=== PATIENT | female | born 1975 | race Caucasian/White ===

== ENCOUNTER → 2016-08-07 | Outpatient (CLI) | payer MEDICAID ==
[~2016-08-07] MED LIST: CELE20TA PO; FERR325T PO; MORP1TAB24 PO; NICO21DI2 T-DERMAL; PERC10TA27 PO; SENN1TAB PO; XANA1TAB2 PO; ZOFR8TAB PO; ZOLO25TA PO
[2016-08-07 11:55] LABS: AUTOMATED NEUTROPHIL # 9.2 TH/MM3 (1.8-7.7); BASOPHIL # 0.1 TH/MM3 (0-0.2); BASOPHIL % 0.5 % (0.0-2.0); EOSINOPHIL # 0.1 TH/MM3 (0-0.4); EOSINOPHIL % 0.6 % (0.0-4.0); HEMATOCRIT 36.2 % (35.0-46.0); LYMPHOCYTE # 2.8 TH/MM3 (1.0-4.8); MEAN CELL VOLUME 80.4 FL (80.0-100.0); MEAN CORPUSCULAR HEMOGLOBIN 24.8 PG (27.0-34.0); MEAN CORPUSCULAR HGB CONC 30.8 % (32.0-36.0); NEUT % 71.9 % (16.0-70.0); PLATELET COUNT 248 TH/MM3 (150-450); RED CELL DISTRIBUTION WIDTH 17.3 % (11.6-17.2); WHITE BLOOD COUNT 12.8 TH/MM3 (4.0-11.0)
[2016-08-07 11:58] LABS: HEMO FLAGS AUTO DIFF
[2016-08-07 12:13] LABS: APTT (PATIENT) 26.7 SEC (24.3-30.1)
[2016-08-07 12:30] LABS: PLATELET ESTIMATE SMEAR NORMAL (NORMAL); PLATELET MORPHOLOGY ENLARGED (NORMAL); SCAN/DIFF AUTO DIFF CONFIRMED
[2016-08-07 12:45] LABS: ALKALINE PHOSPHATASE 61 U/L (45-117); ALT (GPT) 14 U/L (10-53); ANION GAP 5 MEQ/L (5-15); AST (GOT) 17 U/L (15-37); BICARBONATE 29.7 MEQ/L (21.0-32.0); BLOOD UREA NITROGEN 7 MG/DL (7-18); CHLORIDE 106 MEQ/L (98-107); GLOMERULAR FILTRATION RATE 72 ML/MIN (>89); GLUCOSE,FASTING 88 MG/DL (74-99); POTASSIUM 4.6 MEQ/L (3.5-5.1); SODIUM (NA) 141 MEQ/L (136-145); TOTAL BILIRUBIN ADULT 0.2 MG/DL (0.2-1.0)
== END ==
LOC: CLAB 11:25
PROVIDERS: ATTEND Obstetrics & Gynecology Gynecologic Oncology
DX: Z01.818 Encounter for other preprocedural examination (principal)
CPT/HCPCS: 36415; 80053; 84703; 85025; 85610; 85730

== ENCOUNTER → 2016-08-07 | Outpatient (CLI) | payer MEDICAID ==
--- NOTE | 2016-08-07 11:56 | EKG ---
Date Performed: 08/07/2016 Time Performed: 10:50:54 PTAGE: 41 years EKG: Sinus rhythm NORMAL ECG NO PREVIOUS TRACING DOCTOR: David Rodriguez Interpretating Date/Time 08/07/2016 11:50:46
== END ==
LOC: HCAV 10:18
PROVIDERS: ATTEND Obstetrics & Gynecology Gynecologic Oncology
DX: Z01.810 Encounter for preprocedural cardiovascular examination (principal)
CPT/HCPCS: 93005

== ENCOUNTER 2016-08-14 05:19 | Inpatient (IN) | payer MEDICAID ==
[~2016-08-14] VITALS: Ht 160 cm; Wt 51.0 kg
[2016-08-14] MEDS ORDERED: CHLORHEXIDINE GLUCONATE 2 % 1 PACK (2 CLOTHS) TOPICAL PRN (05:45)
[2016-08-14] MEDS ORDERED: LACTATED RINGER'S 1000 ML IV PRN (05:45)
[2016-08-14] MEDS ORDERED: METOPROLOL TARTRATE 25 MG TAB PO PRN (05:45)
[2016-08-14] MEDS ORDERED: INSULIN HUMAN REGULAR 1,000 UNITS/10 ML VIAL SQ PRN (05:45)
[2016-08-14] MEDS ORDERED: POVIDONE IODINE 5% (ANTISEPSIS KIT) 4 APPLICATIONS EACH NARE PRN (05:45)
[2016-08-14] MEDS ORDERED: SODIUM CHLORID 0.9% 500 ML IV PRN (05:45)
[2016-08-14 05:55] VITALS: BP 105/58; PULSE 73; RESP 20; TEMP 98.8; O2SAT 99
[2016-08-14] MEDS ORDERED: LIDOCAINE 1%/EPINEPHrine 1:100,000 SOLN 50 ML VIAL ONE (06:10)
[2016-08-14] MEDS ORDERED: SILVER NITR/POTASSIUM NITRATE APPLICATORS ONE (06:11)
[2016-08-14] MEDS ORDERED: MIDAZOLAM HCL 2 MG/2 ML VIAL ONE (06:55)
[2016-08-14] MEDS ORDERED: FAMOTIDINE 20 MG/2 ML VIAL ONE (06:56)
[2016-08-14] MEDS ORDERED: ACETAMINOPHEN 1000 MG/100 ML VIAL IV ONE (07:13)
[2016-08-14] MEDS ORDERED: FERRIC SUBSULFATE 8 ML TOP SOLN ONE ×2 (07:31→07:41)
[2016-08-14] MEDS ORDERED: ESTROGENS CONJUGATED VAG CREA 15 APPL/30 GM TUBE ONE ×2 (07:59→08:10)
[2016-08-14] MEDS ORDERED: DO NOT ADM ANY ANTICOAGULANT DRUGS PRN (08:28)
[2016-08-14] MEDS ORDERED: SODIUM CHLORIDE 0.9% FLUSH 10 ML FLUSH IV FLUSH PRN (08:30)
[2016-08-14] MEDS ORDERED: oxyCODONE/ACETAMINOPHEN 5 MG/325 MG TAB PO PRN (08:30)
[2016-08-14] MEDS ORDERED: diphenhydrAMINE HCL 25 MG CAP PO PRN (08:30)
[2016-08-14] MEDS: D5-1/2 NS + KCL 20 MEQ INJ 1,000 ML IV SCH (08:46)
[2016-08-14] MEDS: SODIUM CHLORIDE 0.9% FLUSH 10 ML FLUSH IV FLUSH SCH ×2 (09:00→21:00)
--- NOTE | 2016-08-14 09:39 | MH ---
cc: ARIANNE GORDON M.D.,MAURILIO GALVAN,ESTEFANIA Urias MD DATE OF ADMISSION: 08/14/2016 REASON FOR ADMISSION Cervical cancer, bleeding. HISTORY The history is well outlined in a recent initial consultation note. Her history has not changed and this can be used for reference. REASON FOR ADMISSION She underwent examination under anesthesia this morning with cervical biopsies. She had very heavy active bleeding requiring vaginal packing, hemostatic agents and additional packing and I was apprehensive about allowing her to be discharged to home for concerns about additional bleeding as an outpatient. I have contacted the hospitalist service to ask for their help in admitting her and overseeing her medical management given her past medical history which is also somewhat complex despite her young age of 41. At the time of the procedure she has a Surgicel pack on the cervix and then a Kerlix roll lubricated pack in the vagina for hemostasis and Black catheter has been placed. She is hemodynamically stable in the operating room and recovery room and the bleeding had been completely stopped at the completion of the operative case. She will be admitted to the hospital, typed and crossed for 2 units. I have consulted Radiation Oncology (Dr. 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 These findings, recommendations and rationale been discussed with her and will be discussed with her when she is awake and cognizant from anesthesia and able to understand this discussion, although the possibility of these steps as well as radiation treatment had been discussed preoperatively and she is aware that that may be recommended based on findings today. ASSESSMENT 1. 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 2. Bleeding requiring packing as summarized above. PLAN 1. Admit to the hospital. We will ask the [facility] team if they would be willing to admit her and oversee medical management during her hospitalization. 2. Consult Interventional Radiology. Venous access port placement. 3. Chemotherapy teaching session for weekly cisplatin (to be done by our office oncology nurse). 4. Consult Dr. Jaswinder Gordon of Radiation Oncology for evaluation and management and to initiate pelvic radiation as soon as logistically possible to help control bleeding. 5. Supportive care, ongoing management. MD GABRIEL Ulrich /9:11 AM /9:34 AM
[2016-08-14] MEDS: LORazepam 0.5 MG TAB PO PRN ×2 (10:55→22:09)
[2016-08-14] MEDS ORDERED: PILL SPLITTER OTHER PRN (11:00)
[2016-08-14 11:54] VITALS: BP 103/55; PULSE 63; RESP 18; TEMP 97.6; O2SAT 97
[2016-08-14] MEDS ORDERED: PROPOFOL 200 MG/20 ML AMP IV ONE (12:00)
[2016-08-14] MEDS ORDERED: ONDANSETRON HCL 4 MG/2 ML VIAL IV PUSH ONE (12:00)
[2016-08-14] MEDS ORDERED: LACTATED RINGER'S 1000 ML INJ 1,000 ML IV ONE (12:00)
[2016-08-14] MEDS: oxyCODONE/ACETAMINOPHEN 5 MG/325 MG TAB PO PRN ×2 (12:42→22:11)
[2016-08-14] MEDS ORDERED: KETOROLAC TROMETHAMINE 30 MG/ML (IVP) VIAL IV PUSH PRN (13:00)
[2016-08-14] MEDS: NICOTINE 21 MG/24 HR PATCH T-DERMAL SCH (13:00)
[2016-08-14] MEDS ORDERED: VANCOMYCIN HCL 1000 MG ON-CALL/NS 250 ML IV SCH ×2 (16:00)
[2016-08-14] MEDS ORDERED: ceFAZolin 2 GM PREMIX 50 ML IV SCH (16:00)
[2016-08-14 16:29] VITALS: BP 103/52; PULSE 67; RESP 18; TEMP 98.4; O2SAT 99
--- NOTE | 2016-08-14 19:27 | MB ---
cc: ARIANNE GORDON M.D., STANLEY D.O. MOLPUS,ESTEFANIA Urias MD DATE OF CONSULTATION 08/14/[address] OF [address] [facility] NUMBER [id number] REASON FOR CONSULTATION This is a 41-year-old female admitted to the hospital today after having an examination under anesthesia for suspected cervical cancer. BRIEF HISTORY This is a 41-year-old female who has not had a gynecologic exam for at least 17 years. She has had several months of heavy menstrual bleeding including blood clots, postcoital bleeding and pelvic and low back pain. A Pap smear was performed suggesting at least carcinoma in situ and she was referred to Dr. Davis. Today in the operating room the patient was examined under anesthesia with biopsies, cystoscopy and sigmoidoscopy. I was present for the EUA. This lady has a large roughly 7 cm barrel-shaped cervix. Her left parametria are clear. There was fullness along the right parametria and this side is foreshortened. There is no evidence of disease involving the vagina. She went on to have a biopsy performed and unfortunately this triggered heavy bleeding. Dr. Davis subsequently performed vaginal packing and has referred her for initiation of radiation treatment to help control bleeding. PAST MEDICAL AND SURGICAL HISTORY Includes: 1. Amputation of a lower extremity. 2. Appendectomy. 3. Cholecystectomy. 4. With tubal ligation. 5. She has a history of presumed cervical cancer and biopsies performed. Pathology is pending. 6. Chronic obstructive pulmonary disease. 7. Elevated cholesterol. 8. History of migraine headaches. SOCIAL AND FAMILY HISTORY She is . She has had two pregnancies and two vaginal births. She does smoke on a daily basis and admits to occasional alcohol. There is no clear family history of malignancy. ALLERGIES NONE KNOWN. MEDICATIONS None prior to hospitalization. REVIEW OF SYSTEMS CONSTITUTIONAL: She complains of fatigue without weight loss. EARS, NOSE, AND THROAT: She has some photosensitivity. She admits to some difficulty hearing. BREASTS: No lumps or nodules. RESPIRATORY: Denies shortness of breath, cough or sputum. CARDIOVASCULAR: Does get some shortness of breath and occasional ankle swelling. GASTROINTESTINAL: Abdominal pain with nausea and some cramping. She denies diarrhea or melena. GENITOURINARY: She has had vaginal bleeding, discharge and blood clots. MUSCULOSKELETAL: Complains of arthritis and bone pain, stiffening of her joints. SKIN: Dry skin. NEUROLOGIC: Denies strokes, seizures or paresthesias. She does admit to headaches and insomnia. PSYCHIATRIC: She admits to some symptoms of depression. ENDOCRINE: She has hot flashes and what she feels is menstrual irregularity. PHYSICAL EXAMINATION VITAL SIGNS: Today on exam she is afebrile. Pulse is 63 and regular, respiratory rate of 18, blood pressure 103/55 and O2 sat on room air of 97%. HEENT: There was no evidence of jaundice. Her conjunctive and eyelids are normal. She had full EOMs. Oral cavity was normal. There is no adenopathy in her head or neck. LUNGS: Her lung encinas were clear without effusion. CARDIOVASCULAR: Her heart sounds were normal without murmurs, rubs or bruits. ABDOMEN: No abdominal masses or tenderness. PELVIC: Vaginal exam revealed a large barrel-shaped 6-7 cm cervix which was mobile with apparent extension into the parametria, although there was no discrete nodules, just thickening. Left parametria was clear. NEUROLOGIC: Power and tone were normal. IMAGING Review of data, this lady has had a CT scan performed on an outpatient basis. This revealed intense uptake in the region of her cervix. There were no other abnormalities. I have reviewed this personally. There is no evidence of lymphadenopathy and no evidence of metastases. ASSESSMENT AND PLAN I have reviewed with her and her the findings. They are aware that although we do not have final pathology, we believe she has a cervix cancer and unfortunately she has been bleeding very heavily. Based on this would like to start radiation treatment on an emergent basis even prior to pathology. I have discussed radiation treatment. I have discussed how it is delivered as well as the side effects including genitourinary and GI tract symptoms which can be severe but expected to resolve when treatment is completed. We have discussed both external beam treatment as well as brachytherapy in the form of tandem and ovoids. Both this lady and her did indicate an understanding of what was discussed. I answered their questions for them and they would like us to proceed as outlined. Based on above we have performed a simulation today and I would anticipate her treatment to start tomorrow. MD KADEN Winn/DIMA /4:20 PM /7:03 PM
[2016-08-14 22:01] VITALS: BP 104/59; PULSE 72; RESP 16; TEMP 99.1; O2SAT 98
[2016-08-15] VITALS (11 sets, daily range): BP systolic 89–124; BP diastolic 40–69; PULSE 61–87; RESP 16–20; TEMP 96.7–98; O2SAT 94–100
[2016-08-15 07:36] LABS: BICARBONATE 23.3 MEQ/L (21.0-32.0); POTASSIUM 4.8 MEQ/L (3.5-5.1)
[2016-08-15 07:46] LABS: AUTOMATED NEUTROPHIL # 3.7 TH/MM3 (1.8-7.7); BASOPHIL # 0.1 TH/MM3 (0-0.2); BASOPHIL % 0.9 % (0.0-2.0); EOSINOPHIL # 0.1 TH/MM3 (0-0.4); EOSINOPHIL % 1.6 % (0.0-4.0); HEMATOCRIT 33.5 % (35.0-46.0); HEMO FLAGS DIFF FINAL; LYMPH % 44.4 % (9.0-44.0); LYMPHOCYTE # 3.9 TH/MM3 (1.0-4.8); MEAN CELL VOLUME 78.7 FL (80.0-100.0); MEAN CORPUSCULAR HEMOGLOBIN 25.4 PG (27.0-34.0); MEAN CORPUSCULAR HGB CONC 32.3 % (32.0-36.0); MONO % 10.7 % (0.0-8.0); NEUT % 42.4 % (16.0-70.0); PLATELET COUNT 190 TH/MM3 (150-450); RED BLOOD COUNT 4.25 MIL/MM3 (4.00-5.30); RED CELL DISTRIBUTION WIDTH 17.6 % (11.6-17.2); WHITE BLOOD COUNT 8.7 TH/MM3 (4.0-11.0)
--- NOTE | 2016-08-15 08:03 | PD.ONC.PN ---
Subjective Subjective Remarks POD #1 pt is resting in bed awakens to voice states she is having some pain and noticed some vaginal bleeding overnight she is going to have infusa-port placed today will have chemo teaching today and having first radiation treatment today. Objective Data Date Time Temp Pulse Resp B/P Pulse Ox O2 Delivery O2 Flow Rate FiO2 08/15/16 05:49 106/69 08/15/16 04:05 97.1 76 16 89/51 99 08/15/16 01:37 98.0 67 16 115/52 100 08/14/16 22:01 99.1 72 16 104/59 98 08/14/16 16:29 98.4 67 18 103/52 99 08/14/16 11:54 97.6 63 18 103/55 97 08/14/16 11:00 68 18 114/45 95 Room Air 08/14/16 10:00 60 18 87/46 93 Room Air 08/14/16 09:30 63 18 109/64 97 Room Air 08/14/16 09:15 71 18 116/64 96 Room Air 08/14/16 09:00 69 18 125/72 96 Room Air 08/14/16 08:45 66 18 135/70 98 Room Air 08/14/16 08:30 73 18 130/78 99 Room Air 08/14/16 08:25 97.6 78 18 129/69 99 Nasal Cannula 2 08/15/16 08/15/16 08/15/16 07:00 15:00 23:00 Intake Total 137 ml Output Total 700 ml Balance -563 ml Result Diagram: 08/15/16 0611 Laboratory Results Laboratory Tests Test 08/14/16 08/15/16 15:03 06:11 Blood Type A POSITIVE Sodium Level 141 MEQ/L Potassium Level 4.8 MEQ/L Chloride Level 109 MEQ/L Carbon Dioxide Level 23.3 MEQ/L Anion Gap 9 MEQ/L Blood Urea Nitrogen 12 MG/DL Creatinine 0.80 MG/DL Estimat Glomerular Filtration 80 ML/MIN Rate Random Glucose 99 MG/DL Calcium Level 7.9 MG/DL Administered Medications Medications (Trade) Dose Ordered Sig/Nick Route PRN Reason Start Time Stop Time Status Last Admin Dose Admin Potassium Chloride/Dextrose/ Sod Cl (D5-1/2 NS + KCl 20 Meq Inj) 1,000 ml @ 75 mls/hr [id number] IV 08/14/16 09:00 08/14/16 08:46 Oxycodone/ Acetaminophen (Percocet 5-325 Mg) 2 tab Q4H PRN PO PAIN SCALE 6 TO 10 08/14/16 08:30 08/14/16 22:11 Lorazepam (Ativan) 0.25 mg Q8H PRN PO ANXIETY 08/14/16 08:30 08/14/16 22:09 Objective Remarks GENERAL: Thin, well-developed patient. SKIN: Warm and dry. HEAD: Normocephalic. EYES: No scleral icterus. No injection or drainage. CARDIOVASCULAR: Regular rate and rhythm without murmurs. RESPIRATORY: Breath sounds equal bilaterally. No accessory muscle use. GASTROINTESTINAL: Abdomen soft, non-tender, nondistended. HEAD OPERATOR SULFIDE: small amount of SS drainage on ant pad EXTREMITIES: No cyanosis, or edema. MUSCULOSKELETAL: Adequate muscle tone. NEUROLOGICAL: No obvious focal deficit. PSYCHIATRIC: Appropriate mood and affect; insight and judgment normal. Assessment/Plan Problem List: (1) Cervical cancer Status: Acute Plan: vaginal packing monitor for any vaginal bleeding infusa-port to be placed today first radiation treatment today pt NPO for port placement continue to monitor for vaginal bleeding daily labs pending pain meds per EMR Attending Statement Dr. Davis is in agreement with this plan of care. Jihan Lubin Aug 15, 2016 08:03
[2016-08-15] MEDS: LORazepam 0.5 MG TAB PO PRN ×3 (08:17→23:38)
[2016-08-15] MEDS: oxyCODONE/ACETAMINOPHEN 5 MG/325 MG TAB PO PRN ×5 (08:19→23:37)
[2016-08-15] MEDS: SODIUM CHLORIDE 0.9% FLUSH 10 ML FLUSH IV FLUSH SCH ×2 (08:19→20:11)
[2016-08-15] MEDS: REMOVE OLD PATCH T-DERMAL SCH (08:20)
[2016-08-15] MEDS: NICOTINE 21 MG/24 HR PATCH T-DERMAL SCH (08:20)
--- NOTE | 2016-08-15 11:13 | MP ---
cc: MAURILIO THOMAS KELLY L. MD DATE OF SURGERY: 08/14/[address] Jaswinder Story, Radiation Oncology. PREOPERATIVE DIAGNOSIS Irregular bleeding, pelvic pain, abnormal Pap smear showing at least squamous cell carcinoma in situ. POSTOPERATIVE DIAGNOSIS Clinical stage IIB invasive squamous cell carcinoma of the cervix. PROCEDURE Examination under anesthesia, cervix biopsies, cystoscopy, proctoscopy, vaginal packing due to bleeding. SURGEON Esther Davis MD DIAL PAINTER [place] certified medical technician assistant. ANESTHESIA Laryngeal mask anesthesia. ESTIMATED BLOOD LOSS 500 ccs. HISTORY A 41-year-old female who has reported for some time irregular bleeding, bleeding between intercourse, back pain, pelvic pain. It has been approximately 17 years since her previous exam until recently. She had a Pap smear done elsewhere that showed at least high-grade dysplasia, invasive cancer could not be excluded. She was counseled and given her symptomatology and findings there was concern about invasive cancer. We recommended exam under anesthesia. She presents now for that endeavor. It is noted that she completed a PET scan yesterday, the results of which are pending at the time of this dictation. She had a PET scan yesterday, the interpretation of which is still pending. FINDINGS On exam under anesthesia there is no appreciably enlarged inguinal lymph nodes, external genitalia without mass or lesion. Digital exam reveals a very large exophytic tumor completely replacing the cervix and rectovaginal exam shows that there is still mobility on the left side, there is no overt palpable infiltration into the left parametria, but on the right parametria there is infiltration and nodularity. There is still a tumor free space between the parametria and the right pelvic sidewall. The tumor itself is at least 6 cm in diameter and was extremely hemorrhagic with tissue biopsies requiring vaginal packing, hemostatic agents and additional time and effort to render her hemostatic more so than usual biopsies of even cervix cancer. On cystoscopy the bladder mucosa appeared normal, circumferentially, the ureteral ostia were well-visualized bilaterally. There was good efflux of urine. There was no nodularity. No tumor invasion into the bladder. On rigid proctosigmoidoscopy to a depth of 17 cm, there was no mucosal abnormality, no infiltration, no obvious tumor in the anus or rectum. There was some extrinsic deviation from the large cervical mass, pushing on the rectum posteriorly. Frozen section biopsy shows an invasive squamous cell carcinoma. Overall these findings are consistent with a clinical stage IIB squamous cell carcinoma of the cervix and her disposition was such that vaginal packing was required and she was not able to be discharged to home, so she was admitted to the hospital for further evaluation and management. PROCEDURE The patient was taken to the operating room and placed in dorsal lithotomy position, after laryngeal mask anesthesia was administered, time-out was undertaken. The patient was identified by sight recognition and hospital ID bracelet and the proposed procedure was reviewed and confirmed. Exam under anesthesia was performed with findings as described above. She was prepped and draped in sterile fashion. Dr. Jack Story, Radiation Oncology had been consulted. He performed exam under anesthesia as well and concurred with our findings. After she was prepped and draped in sterile fashion, biopsies were taken of the cervix which immediately resulted in significant bleeding. Vaginal packing was undertaken and cystoscopy was performed using a 30 degree scope. Findings with cystoscopy are as described above, followed by rigid proctosigmoidoscopy with findings as described above. Change of sterile gloves was undertaken. The vaginal packs were removed. There was still active bleeding from the cervix biopsy tumor sites. Topical Monsel's hemostatic agent was applied which eventually slowed the bleeding considerably and a large piece of Surgicel was used overlying the cervical tumor and to pack the upper vagina which rendered the area hemostatic. However, due to the high volume active bleeding, it was felt that she could not be discharged to home safely. Decision was made to admit her to the hospital and a pressure packing in the vagina was placed using Kerlix rolls, two of which were tied together end to end, lubricated with estrogen cream, packed securely against the upper vagina, cervix and a Black catheter was placed in the bladder. She was turned to dorsal supine position. The counts were otherwise correct and she was pending reversal of anesthesia when I left the operating room to speak to her , who was waiting in the family waiting area. MD CAROL ANN Ulrich/JESÚS /9:01 AM /10:46 AM
[2016-08-15] MEDS ORDERED: MIDAZOLAM HCL 5 MG/5 ML VIAL ONE (12:17)
[2016-08-15] MEDS ORDERED: LIDOCAINE 1%/EPINEPHrine 1:100,000 SOLN 20 ML VIAL ONE (12:17)
[2016-08-15] MEDS ORDERED: fentaNYL CITRATE 250 MCG/5 ML AMP ONE (12:17)
[2016-08-15] MEDS ORDERED: LORazepam 2 MG/ML VIAL ONE (12:54)
--- NOTE | 2016-08-15 13:23 | PD.RAD ---
Post Procedure Progress Note Pre Procedure Diagnosis: (1) Cervical cancer Post Procedure Diagnosis: (1) Cervical cancer Procedure Date: Aug 15, 2016 Supervising Radiologist: Jose Miranda Proceduralist/Assist: Mercedes Meza RT(R), Mercedes Vargas RT(R)() Anesthesia: Local, Conscious Sedation Plan of Activity Patient to Unit: Nursing Unit Patient Condition: Good See PACS Report for procedural detail/treatment Central Venous Access Device Procedure 1 Right Internal Jugular Infusaport Placement single lumen [place]: 8 Jose Miranda MD Aug 15, 2016 13:23
--- NOTE | 2016-08-15 13:44 | RADRPT ---
EXAM DATE/TIME: 08/15/2016 12:30 [place] COMPARISON: No previous studies available for comparison. INDICATIONS : Patient with a history of cervical cancer. MEDICAL HISTORY : Elevated cholesterol Migraine headaches COPD History of presumed cervical cancer and biopsies performed, pathology is pending SURGICAL HISTORY : Amputation of toes, bilateral Appendectomy Cholecystectomy ENCOUNTER: Initial ACUITY: 1 day PAIN SCORE: 7/10 LOCATION: Lower back and hips FLUORO TIME: 0.5 minutes IMAGE SERIES: 1 SEDATION TIME: 45 minutes ACCESS: Right internal jugular vein SEDATION: 1.) 4 mg midazolam (Versed) IV 2.) 250 mcg fentanyl (Sublimaze) IV 3.) 1mg lorazepam (Ativan) IV Prophylactic antibiotics were administered with appropriate pre-procedure timing. Vancomycin within 2 hours of procedure, Ancef (or alternative) within 1 hour of procedure. DEVICE: 1. 8 Filipino single lumen Bard Power Port PROCEDURE : 1. Continuous pulse oximetry and EKG monitoring. 2. Intravenous conscious sedation. 3. Ultrasound guidance for venous access. 4. Fluoroscopic guided implantable central venous port placement. The patient was placed supine. The neck was prepped in sterile fashion. Full sterile technique was u sed, including cap, mask, sterile gloves and gown, and a large sterile sheet. Hand hygiene and 2% ch lorhexidine Betadine was utilized per protocol for cutaneous antisepsis with appropriate dry time for site. The skin and subcutaneous tissues were infiltrated with local anesthetic solution. Under direct ultrasound guidance, central venous access was accomplished in the targeted vessel. The ultrasound images depicting access guidance were stored and saved to PACS for permanent record. A s ubcutaneous pocket was created using blunt dissection. The port was introduced to the pocket. The c atheter tubing was fed through a subcutaneous tunnel to the venotomy site. The catheter tubing was c ut to a suitable length and then was introduced through a valved Peel-Away sheath and positioned with catheter tubing tip at the cavo-atrial junction level. The pocket incision was closed with subcutic ular Vicryl suture. Steri-Strips were applied. The port was flushed and locked with heparin solutio n per protocol. Sterile dressing was applied to the site. The patient tolerated the procedure well. Conscious sedation was performed with the prescribed dosages and duration as above in the presence of an independent trained radiology nurse to assist in the monitoring of the patient. EKG and oximetry remained stable throughout the procedure. The patient tolerated the procedure well and there were no complications. The patient was sent to post anesthesia recovery in stable condition. CONCLUSION: Uncomplicated ultrasound and fluoroscopic guided implanted central venous port catheter placement as described in detail above. An 8 Filipino Power port was placed. Jose Miranda MD on August 15, 2016 at 13:42 Board Certified Radiologist. This report was verified electronically.
[2016-08-15] MEDS: D5-1/2 NS + KCL 20 MEQ INJ 1,000 ML IV SCH (15:42)
--- NOTE | 2016-08-15 16:24 | HHI.PR ---
Subjective Remarks + vaginal bleeding complains of chronic pain no fever headache, or chills very emotional today Objective Vitals Vital Signs Date Time Temp Pulse Resp B/P Pulse Ox O2 Delivery O2 Flow Rate FiO2 08/15/16 15:45 16 08/15/16 14:37 74 19 90/57 95 08/15/16 14:37 72 19 90/40 99 08/15/16 14:07 76 18 100/54 94 08/15/16 13:37 69 19 124/56 97 08/15/16 13:22 97.3 87 18 96/68 08/15/16 11:00 97.2 61 20 108/54 98 08/15/16 07:50 97.5 66 20 102/55 100 08/15/16 05:49 106/69 08/15/16 04:05 97.1 76 16 89/51 99 08/15/16 01:37 98.0 67 16 115/52 100 08/14/16 22:01 99.1 72 16 104/59 98 08/14/16 16:29 98.4 67 18 103/52 99 I/O 08/14/16 08/14/16 08/14/16 08/15/16 08/15/16 08/15/16 07:00 15:00 23:00 07:00 15:00 23:00 Intake Total 610 ml 137 ml Output Total 850 ml 700 ml Balance -240 ml -563 ml Intake Oral 610 ml 0 ml IV Total 137 ml Output Urine Total 850 ml 700 ml # Voids 1 # Bowel Movements 0 1 # Sanitary Pads 1 Pads Result Diagram: 08/15/16 0611 08/15/16 0611 Imaging Last Impressions Port Line Insertion 08/15/16 0000 Signed Impressions: Service Date/Time: Monday, August 15, 2016 12:30 - CONCLUSION: Uncomplicated ultrasound and fluoroscopic guided implanted central venous port catheter placement as described in detail above. An 8 [place]ian Power port was placed. Jose Miranda MD Objective Remarks awake and alert, NAD, anxious anicteric lungs clear regular rhythm abdomen- soft, + BS sagastume inplace extremities no calf swelling, + TMA both feet Procedures 08/14- cystoscopy, cervical biopsy 08/15- infusaport Urinary Catheter: Yes Assessment to: Continue Sagastume insert reason: Surgical/Invasive Proced Date of Insertion: Aug 14, 2016 A/P Assessment and Plan 41 years old female Clinical Stage II-B squamous cell carcinoma of the cervix. S/P biopsy cystoscopy 08/14 -gyne-oncology ff - Consult Interventional Radiology. Venous access port placement. - Chemotherapy teaching session for weekly cisplatin - OP oncology nurse). - Dr. Jaswinder Story of Radiation Oncology ff- undergoing RTX-going this pm control bleeding. - prn pain meds Anemia like from vaginal bleeding - check iron studies Anxiety disorder- continue on Ativan increase to q6 Smoker - Nicotine patch Jayesh Horn MD Aug 15, 2016 16:24
[2016-08-15 21:08] LABS: HEMATOCRIT 32.9 % (35.0-46.0); MEAN CELL VOLUME 80.4 FL (80.0-100.0); MEAN CORPUSCULAR HEMOGLOBIN 25.2 PG (27.0-34.0); MEAN CORPUSCULAR HGB CONC 31.4 % (32.0-36.0); PLATELET COUNT 295 TH/MM3 (150-450); RED BLOOD COUNT 4.09 MIL/MM3 (4.00-5.30); RED CELL DISTRIBUTION WIDTH 17.5 % (11.6-17.2); REVIEW FLAG FINAL; WHITE BLOOD COUNT 10.4 TH/MM3 (4.0-11.0)
[2016-08-15 21:22] LABS: FERRITIN 15 NG/ML (8-252); TRANSFERRIN IRON PROFILE 221 MG/DL (200-360)
[2016-08-16] VITALS: BP 109/59; PULSE 77; RESP 16; TEMP 97.6; O2SAT 99
[2016-08-16] MEDS: oxyCODONE/ACETAMINOPHEN 5 MG/325 MG TAB PO PRN ×5 (03:41→23:37)
[2016-08-16 04:00] VITALS: BP 120/62; PULSE 65; RESP 16; TEMP 96.6; O2SAT 99
[2016-08-16] MEDS: D5-1/2 NS + KCL 20 MEQ INJ 1,000 ML IV SCH (05:24)
--- NOTE | 2016-08-16 07:49 | HHI.PR ---
Subjective Remarks patient in better spirits today, emiling and looking forward to further treatment + vaginal bleeding- decrease- changed pad 2x- but not soaked per patient Objective Vitals Vital Signs Date Time Temp Pulse Resp B/P Pulse Ox O2 Delivery O2 Flow Rate FiO2 08/16/16 04:00 96.6 65 16 120/62 99 08/16/16 00:00 97.6 77 16 109/59 99 08/15/16 20:00 97.0 78 16 114/56 100 08/15/16 16:00 96.7 66 20 93/54 99 08/15/16 15:45 16 08/15/16 14:37 74 19 90/57 95 08/15/16 14:37 72 19 90/40 99 08/15/16 14:07 76 18 100/54 94 08/15/16 13:37 69 19 124/56 97 08/15/16 13:22 97.3 87 18 96/68 08/15/16 11:00 97.2 61 20 108/54 98 08/15/16 07:50 97.5 66 20 102/55 100 I/O 08/15/16 08/15/16 08/15/16 08/16/16 08/16/16 08/16/16 07:00 15:00 23:00 07:00 15:00 23:00 Intake Total 137 ml 0 ml 1879 ml Output Total 700 ml 500 ml 900 ml 1000 ml Balance -563 ml -500 ml -900 ml 879 ml Intake Oral 0 ml 0 ml 240 ml IV Total 137 ml 1639 ml Output Urine Total 700 ml 500 ml 900 ml 1000 ml # Bowel Movements 1 0 # Sanitary Pads 1 Pads 1 Pads Result Diagram: 08/15/16205308/15/16 0611 Imaging Last Impressions Port Line Insertion 08/15/16 0000 Signed Impressions: Service Date/Time: Monday, August 15, 2016 12:30 - CONCLUSION: Uncomplicated ultrasound and fluoroscopic guided implanted central venous port catheter placement as described in detail above. An 8 [place] Power port was placed. Jose Miranda MD Objective Remarks awake and alert, NAD, anxious anicteric lungs clear regular rhythm abdomen- soft, + BS sagastume in place extremities no calf swelling, + TMA both feet Procedures 08/14- cystoscopy, cervical biopsy 08/15- infusaport Urinary Catheter: Yes Assessment to: Remove Date of Insertion: Aug 14, 2016 A/P Assessment and Plan 41 years old female Clinical Stage II-B squamous cell carcinoma of the cervix. S/P biopsy cystoscopy 08/14 -gyne-oncology ff - S/P Venous access port placement. - Chemotherapy teaching session for weekly cisplatin - OP oncology nurse). - Dr. Jaswinder Story of Radiation Oncology ff- undergoing RTX- - plan I think is for chemo in am - prn pain meds. start colace - Remove sagastume only if cleared with Dr. Davis Anemia like from vaginal bleeding - H and H stable - IV Venofer 200 mg x1 - start po in am Anxiety disorder/Depression -feeling better on Ativan increase to q6 prn - continue Celexa Smoker - Nicotine patch patient up and ambulatin Jayesh Horn MD Aug 16, 2016 07:49
[2016-08-16 07:50] VITALS: BP 97/59; PULSE 75; RESP 20; TEMP 97.9; O2SAT 98
[2016-08-16] MEDS: LORazepam 0.5 MG TAB PO PRN ×3 (07:59→23:36)
[2016-08-16] MEDS: SODIUM CHLORIDE 0.9% FLUSH 10 ML FLUSH IV FLUSH SCH ×2 (09:00→21:36)
[2016-08-16] MEDS: REMOVE OLD PATCH T-DERMAL SCH (09:00)
[2016-08-16] MEDS: DOCUSATE SODIUM 100 MG CAP PO SCH ×2 (09:50→21:35)
[2016-08-16] MEDS: CITALOPRAM HYDROBROMIDE 20 MG TAB PO SCH (09:50)
[2016-08-16] MEDS: NICOTINE 21 MG/24 HR PATCH T-DERMAL SCH (09:51)
[2016-08-16] MEDS ORDERED: IRON SUCROSE INJ 200 MG in SODIUM CHLORIDE 0.9% INJ 100 ML IV ONE (10:00)
[2016-08-16 11:50] VITALS: BP 92/61; PULSE 82; RESP 20; TEMP 98.6; O2SAT 99
[2016-08-16 12:08] LABS: HEMATOCRIT 35.5 % (35.0-46.0); MEAN CELL VOLUME 81.1 FL (80.0-100.0); MEAN CORPUSCULAR HEMOGLOBIN 24.9 PG (27.0-34.0); MEAN CORPUSCULAR HGB CONC 30.7 % (32.0-36.0); PLATELET COUNT 259 TH/MM3 (150-450); RED BLOOD COUNT 4.38 MIL/MM3 (4.00-5.30); RED CELL DISTRIBUTION WIDTH 17.4 % (11.6-17.2); WHITE BLOOD COUNT 8.4 TH/MM3 (4.0-11.0)
[2016-08-16 12:12] LABS: REVIEW FLAG FINAL
[2016-08-16 15:50] VITALS: BP 105/59; PULSE 68; RESP 20; TEMP 97.4; O2SAT 99
[2016-08-16] MEDS: ONDANSETRON HCL 4 MG/2 ML VIAL IVP PRN ×2 (15:59→23:36)
[2016-08-16 22:11] VITALS: BP 103/65; PULSE 90; RESP 16; O2SAT 96
[2016-08-17] VITALS (7 sets, daily range): BP systolic 94–148; BP diastolic 51–81; PULSE 68–108; RESP 16–19; TEMP 96.4–101.3; O2SAT 96–100
[2016-08-17] MEDS: D5-1/2 NS + KCL 20 MEQ INJ 1,000 ML IV SCH ×2 (03:28→20:02)
[2016-08-17] MEDS: ONDANSETRON HCL 4 MG/2 ML VIAL IVP PRN (06:03)
[2016-08-17] MEDS: oxyCODONE/ACETAMINOPHEN 5 MG/325 MG TAB PO PRN ×5 (06:04→22:51)
--- NOTE | 2016-08-17 08:27 | MB ---
cc: ESTEFANIA GALVAN MD DATE OF CONSULTATION 08/17/2016 REASON FOR CONSULTATION Summary of discussions over the last couple of days with Evie Whitmore and her . I explained in detail the findings of her biopsies from surgery showing a large tumor replacing the cervix and infiltrating into the right parametrial tissue. 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 The bladder, anus and rectal mucosa were normal. PET/CT scan shows a strong PET/Avid signal and mass-like effect in the cervix without overt evidence of metastatic disease. I explained why surgery is not the appropriate treatment for this, but the radiation is the recommended therapy and weekly cisplatin chemotherapy to enhance the radiation response. I explained the bleeding that was encountered during biopsies from her procedure that was fairly significant that required topical hemostatic agents and essentially vaginal packing to suppress the bleeding. Black catheter was placed and that is the reason why she was admitted to the hospital. She understands that Dr. Jack Story, radiation oncology, was present for the exam under anesthesia and has graciously agreed to move forward initiating radiation. An overview of radiation anticipated treatment schedule and potential benefits as well as side effects have been discussed at length. Furthermore, a discussion of chemotherapy, weekly cisplatin while taking the external radiation has been discussed at length. Questions were answered. The rationale for venous access port has been discussed. She understands and agrees with all of these recommendations. The aforementioned steps have now been initiated at the time of this dictation. She has had two radiation treatments. She has had a venous access port placed and she will be for cisplatin chemotherapy today. They are grateful for Dr. Jayesh Horn and her teams excellent medical care assisting in her care. Today she has no new complaints. She remained anxious, has some discomfort. In our discussion we have agreed to move forward with cisplatin chemotherapy today while she is an inpatient. She will get a radiation treatment today after which we may try to remove the vaginal pack and if she is stable, consider discharge to home. PHYSICAL EXAM She remains afebrile, pulse ranging from 68-104, respirations 16-20, blood pressure 105-148/59-81, O2 saturations greater than equal to 96%. In's and out's 1380/3600. LABS: Labs yesterday showed stability of her H&H at 10.9 and 35.5, preservation of renal function most recent BUN and creatinine 12 and 0.8. GENERAL: She is alert and oriented x3 in no acute distress. ABDOMEN: Nontender. No active bleeding. A small amount of serosanguineous discharge on peripad. ASSESSMENT Stage II B squamous cell carcinoma of cervix. PLAN 1. As outlined above. Continue supportive care and ongoing medical management while in the hospital. 2. Pelvic radiation has been initiated. She has had a port placed and we will move forward with her first cisplatin infusion today. 3. She understands importance of staying on schedule following up for her radiation and cisplatin chemotherapy as recommended. Our office number is made available again to contact us should she have any questions after discharge. MD CAROL ANN Ulrich/NICK /7:28 AM /8:17 AM
[2016-08-17] MEDS: REMOVE OLD PATCH T-DERMAL SCH (09:00)
[2016-08-17] MEDS: DOCUSATE SODIUM 100 MG CAP PO SCH ×2 (10:05→20:03)
[2016-08-17] MEDS: CITALOPRAM HYDROBROMIDE 20 MG TAB PO SCH (10:05)
[2016-08-17] MEDS: NICOTINE 21 MG/24 HR PATCH T-DERMAL SCH (10:06)
[2016-08-17] MEDS ORDERED: POTASSIUM CHLORIDE INJ 10 MEQ, MAGNESIUM SULFATE INJ 4 MEQ in SODIUM CHLORID 0.9% 500 M... IV SCH ×2 (12:00→14:00)
[2016-08-17] MEDS ORDERED: GRANISETRON HCL 1 MG/ML VIAL IV ONE (12:30)
[2016-08-17] MEDS ORDERED: MANNITOL 12.5 GM/50 ML VIAL IV ONE (12:30)
[2016-08-17] MEDS ORDERED: DEXAMETHASONE INJ 20 MG in SODIUM CHLORIDE 0.9% INJ 50 ML IV ONE (12:30)
[2016-08-17] MEDS ORDERED: CISPLATIN IV ONE (13:00)
[2016-08-17] MEDS ORDERED: SODIUM CHLOR 0.9% IV ONE (13:00)
[2016-08-17] MEDS: ALPRAZolam 1 MG TAB PO PRN ×2 (13:08→22:55)
[2016-08-17] MEDS: SODIUM CHLORIDE 0.9% FLUSH 10 ML FLUSH IV FLUSH SCH ×2 (13:20→20:03)
[2016-08-17] MEDS ORDERED: IRON SUCROSE INJ 200 MG in SODIUM CHLORIDE 0.9% INJ 100 ML IV SCH (15:15)
--- NOTE | 2016-08-17 16:12 | HHI.PR ---
Subjective Remarks for radiation and chemo today with cisplatin today looking forward to more therapy Objective Vitals Vital Signs Date Time Temp Pulse Resp B/P Pulse Ox O2 Delivery O2 Flow Rate FiO2 08/17/16 12:00 96.4 70 16 94/54 97 08/17/16 08:00 97.7 78 18 112/63 100 08/17/16 07:43 16 08/17/16 04:16 97.8 104 16 148/81 99 08/17/16 01:00 98.8 86 16 140/71 96 08/16/16 22:11 90 16 103/65 96 I/O 08/16/16 08/16/16 08/16/16 08/17/16 08/17/16 08/17/16 07:00 15:00 23:00 07:00 15:00 23:00 Intake Total 1879 ml 720 ml 660 ml 840 ml Output Total 1000 ml 1200 ml 1400 ml 850 ml Balance 879 ml -480 ml -740 ml -10 ml Intake Oral 240 ml 720 ml 660 ml 840 ml IV Total 1639 ml Output Urine Total 1000 ml 1200 ml 1400 ml 850 ml # Bowel Movements 0 0 # Sanitary Pads 0 Pads 0 Pads 2 Pads Result Diagram: 08/16/16 1137 08/15/16 0611 Imaging Last Impressions Port Line Insertion 08/15/16 0000 Signed Impressions: Service Date/Time: Monday, August 15, 2016 12:30 - CONCLUSION: Uncomplicated ultrasound and fluoroscopic guided implanted central venous port catheter placement as described in detail above. An 8 Tamazight Power port was placed. Jose Miranda MD Objective Remarks awake and alert, NAD, calmer anicteric lungs clear regular rhythm abdomen- soft, + BS sagastume in place extremities no calf swelling, + TMA both feet Procedures 08/14- cystoscopy, cervical biopsy 08/15- infusaport Date of Insertion: Aug 14, 2016 A/P Assessment and Plan 41 years old female Clinical Stage II-B squamous cell carcinoma of the cervix. S/P biopsy cystoscopy 08/14 -gyne-oncology ff - S/P Venous access port placement. 08/15 - Chemotherapy teaching session for weekly cisplatin - OP oncology nurse). - Dr. Jaswinder Story of Radiation Oncology ff- undergoing RTX- went today - chemo started today with cisplatin - prn pain meds. start colace - Remove sagastume only if cleared with Dr. Davis Anemia like from vaginal bleeding - H and H stable - S/P IV Venofer - Ferrous sulfate 325 mg po bid Anxiety disorder/Depression -feeling better on Ativan increase to q6 prn - continue Celexa Smoker - Nicotine patch patient up and ambulating Jayesh Horn MD Aug 17, 2016 16:12
[2016-08-17] MEDS ORDERED: IRON SUCROSE INJ 100 MG in SODIUM CHLORIDE 0.9% INJ 100 ML IV ONE (17:00)
[2016-08-17] MEDS: FERROUS SULFATE 325 MG (65 MG ELEMENTAL IRON) TAB PO SCH (20:02)
[2016-08-18] VITALS: BP 106/60; PULSE 73; RESP 18; TEMP 97; O2SAT 99
[2016-08-18 04:00] VITALS: BP 105/57; PULSE 69; RESP 18; TEMP 96.8; O2SAT 99
[2016-08-18] MEDS: oxyCODONE/ACETAMINOPHEN 5 MG/325 MG TAB PO PRN ×2 (06:36→13:02)
[2016-08-18] MEDS: ALPRAZolam 1 MG TAB PO PRN (06:46)
[2016-08-18] MEDS: D5-1/2 NS + KCL 20 MEQ INJ 1,000 ML IV SCH (06:47)
[2016-08-18 08:00] VITALS: BP 101/54; PULSE 66; RESP 16; TEMP 98.5; O2SAT 98
[2016-08-18] MEDS ORDERED: DOCUSATE SODIUM 50 MG/SENNA 8.6 MG TAB PO SCH (09:00)
[2016-08-18] MEDS: NICOTINE 21 MG/24 HR PATCH T-DERMAL SCH (09:52)
[2016-08-18] MEDS: REMOVE OLD PATCH T-DERMAL SCH (09:52)
[2016-08-18] MEDS: CITALOPRAM HYDROBROMIDE 20 MG TAB PO SCH (09:53)
[2016-08-18] MEDS: FERROUS SULFATE 325 MG (65 MG ELEMENTAL IRON) TAB PO SCH (09:53)
[2016-08-18] MEDS: SODIUM CHLORIDE 0.9% FLUSH 10 ML FLUSH IV FLUSH SCH (09:59)
[2016-08-18 12:00] VITALS: BP 97/54; PULSE 72; RESP 18; TEMP 98.1; O2SAT 98
--- NOTE | 2016-08-18 12:29 | HHI.PR ---
Subjective Remarks Patient seen for follow up of cervical CA. 08/18/16-patient seen and evaluated this AM. AFVSS. Complains pain not adequately controlled with percocet 5/325. She states she has used percocet 10/ 325 in the past and this works well. No other complaints. She would like to go home today. Black out. UOP good. Objective Vitals Vital Signs Date Time Temp Pulse Resp B/P Pulse Ox O2 Delivery O2 Flow Rate FiO2 08/18/16 08:00 98.5 66 16 101/54 98 08/18/16 07:37 20 08/18/16 04:00 96.8 69 18 105/57 99 08/18/16 00:00 97.0 73 18 106/60 99 08/17/16 20:00 96.9 70 19 97/56 97 08/17/16 17:00 98.0 68 16 99/51 98 I/O 08/17/16 08/17/16 08/17/16 08/18/16 08/18/16 08/18/16 07:00 15:00 23:00 07:00 15:00 23:00 Intake Total 660 ml 840 ml 720 ml 744 ml Output Total 1400 ml 850 ml 1150 ml 1250 ml Balance -740 ml -10 ml -430 ml -506 ml Intake Oral 660 ml 840 ml 720 ml 240 ml IV Total 504 ml Output Urine Total 1400 ml 850 ml 1150 ml 1250 ml # Bowel Movements 0 # Sanitary Pads 2 Pads 2 Pads Result Diagram: 08/16/16 1137 08/15/16 0611 Objective Remarks GENERAL: Thin, middle aged female. Sitting up in bed. In NAD. SKIN: Warm and dry. HEAD: Normocephalic. EYES: No scleral icterus. No injection or drainage. NECK: Supple, trachea midline. No JVD or lymphadenopathy. CARDIOVASCULAR: Regular rate and rhythm without murmurs, gallops, or rubs. RESPIRATORY: Breath sounds equal bilaterally. No accessory muscle use. GASTROINTESTINAL: Abdomen soft, non-tender, nondistended. EXTREMITIES: No cyanosis, or edema. NEUROLOGICAL: Awake, alert, and oriented x 3. Non-focal. Procedures 08/14- cystoscopy, cervical biopsy 08/15- infusaport Date of Insertion: Aug 14, 2016 A/P Problem List: (1) Cervical cancer ICD Code: C53.9 Status: Acute (2) Anemia ICD Code: D64.9 Status: Acute (3) Smoking history ICD Code: Z87.891 Status: Chronic (4) Anxiety and depression ICD Code: F41.9 Status: Chronic Assessment and Plan 41 years old female with 1. 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 -s/p cystoscopy with bx 08/14 -[facility]-onc on board (Dr. Davis). Chemo started yesterday with cisplatin. -s/p Venous access port placement. 08/15. Chemotherapy teaching session for weekly cisplatin - OP oncology nurse. -s/p radiation therapy with Dr. Jaswinder Story of Radiation Oncology yesterday -prn pain meds. start colace 2. Anemia like from vaginal bleeding -H and H stable -s/p IV Venofer -ferrous sulfate 325 mg po bid 3. Anxiety disorder/Depression -well controlled with Ativan q6 prn -continue Celexa 4. Smoker -nicotine patch 5. DVT ppx -patient ambulatory. SCDs. Dispo - plan for DC home today with [facility] GEOLOGIST-onc follow up this coming week. Problem Qualifiers (1) Cervical cancer: Qualified Code: C53.9 - Malignant neoplasm of cervix, unspecified site (2) Anemia: Qualified Code: D64.9 - Anemia, unspecified type Adair Madrigal MD R3 Aug 18, 2016 12:29
[2016-08-18] MEDS ORDERED: XANA1TAB2 PO (13:10)
[2016-08-18] MEDS ORDERED: NICO21DI2 T-DERMAL (13:10)
[2016-08-18] MEDS ORDERED: CELE20TA PO (13:10)
[2016-08-18] MEDS ORDERED: SENN1TAB PO (13:10)
[2016-08-18] MEDS ORDERED: PERC10TA27 PO (13:10)
[2016-08-18] MEDS ORDERED: FERR325T PO (13:10)
--- NOTE | 2016-08-18 13:10 | HHI.DCPOC ---
Discharge Care Plan Diagnosis: (1) Cervical cancer (2) Anemia Goals to Promote Your Health * To prevent worsening of your condition and complications * To maintain your health at the optimal level Directions to Meet Your Goals Take your medications as prescribed Follow your dietary instruction Follow activity as directed Keep your appointments as scheduled Take your immunizations and boosters as scheduled If your symptoms worsen call your PCP, if no PCP go to Urgent Care Center or Emergency Room Smoking is Dangerous to Your Health. Avoid second hand smoke Call the 24-hour hour crisis hotline for domestic abuse at Adair Madrigal MD R3 Aug 18, 2016 13:10
[2016-08-18] MEDS ORDERED: MAGNESIUM HYDROXIDE SUSP 30 ML CUP PO ONE (13:15)
--- NOTE | 2016-09-25 09:25 | HHI.DS ---
Discharge Summary Admission Date Aug 14, 2016 at 08:29 Discharge Date: September 19, 2016 Admitting Diagnosis Cervical cancer, vaginal bleeding (1) Cervical cancer ICD Code: C53.9 Diagnosis: Principal (2) Anemia ICD Code: D64.9 Diagnosis: Secondary (3) Smoking history ICD Code: Z87.891 Diagnosis: Secondary (4) Anxiety and depression ICD Code: F41.9 Diagnosis: Secondary Procedures 08/14- cystoscopy, cervical biopsy 08/15- infusaport Brief History - From Admission 41 year old female admitted on 08/14 after significant bleeding from cervical biopsy requiring cervical/vaginal packing and hemostatic agents. Discovered to have mild anemia on admission. PE at Discharge GENERAL: Thin, middle aged female. Sitting up in bed. In NAD. SKIN: Warm and dry. HEAD: Normocephalic. EYES: No scleral icterus. No injection or drainage. NECK: Supple, trachea midline. No JVD or lymphadenopathy. CARDIOVASCULAR: Regular rate and rhythm without murmurs, gallops, or rubs. RESPIRATORY: Breath sounds equal bilaterally. No accessory muscle use. GASTROINTESTINAL: Abdomen soft, non-tender, nondistended. EXTREMITIES: No cyanosis, or edema. NEUROLOGICAL: Awake, alert, and oriented x 3. Non-focal. Hospital Course 41 year old female admitted on 08/14 after significant bleeding from cervical biopsy requiring cervical/vaginal packing and hemostatic agents. Discovered to have mild anemia on admission with hemoglobin in the 10s. Hospitalist service consulted for management of medical issues. Pathology from cervical biopsy showed stage IIB squamous cell CA. Central venous port placed and patient started on chemotherapy with cisplatin before discharge. Hemoglobin remained stable throughout her course. Started on iron supplementation before discharge. She was discharged home 08/20. [facility] Condition on Discharge: Stable Discharge Disposition: Discharge Home Discharge Time: <= 30 minutes Discharge Instructions DIET: Follow Instructions for: As Tolerated, No Restrictions Activities you can perform: Regular-No Restrictions Adair Madrigal MD R3 September 25, 2016 09:25
[2016-10-03] MEDS ORDERED: ZOFR8TAB PO (06:25)
[2016-10-17] MEDS ORDERED: ZOLO25TA PO (06:46)
[2016-10-17] MEDS ORDERED: MORP1TAB24 PO (06:47)
== END 2016-08-18 14:22 | disposition home or self-care (01) | DRG 745 ==
LOC: HSDC 05:19 → HSDI 08:29 → HOCA 10:56 → HOCB 08-15 15:27 → HOCA 08-15 15:37
PROVIDERS: ADMIT Family Medicine; ATTEND Family Medicine
PROC: 0UBC7ZX Excision of Cervix, Via Natural or Artificial Opening, Diagnostic (ICD-10-PCS; 2016-08-14)
PROC: 0TJB8ZZ Inspection of Bladder, Via Natural or Artificial Opening Endoscopic (ICD-10-PCS; 2016-08-14)
PROC: 0DJD8ZZ Inspection of Lower Intestinal Tract, Via Natural or Artificial Opening Endoscopic (ICD-10-PCS; 2016-08-14)
PROC: 05HM33Z Insertion of Infusion Device into Right Internal Jugular Vein, Percutaneous Approach (ICD-10-PCS; principal; 2016-08-15)
DX: C53.0 Malignant neoplasm of endocervix (principal); F32.9 Major depressive disorder, single episode, unspecified; J44.9 Chronic obstructive pulmonary disease, unspecified; F17.210 Nicotine dependence, cigarettes, uncomplicated; G43.909 Migraine, unspecified, not intractable, without status migrainosus; F41.9 Anxiety disorder, unspecified; D64.9 Anemia, unspecified; N93.8 Other specified abnormal uterine and vaginal bleeding
CPT/HCPCS: 36561; 76937; 77001; 77280; 77300; 77301; 77334; 77338; 77386; 77387; 80048; 82728; 82948; 83540; 83550; 85025; 85027; 86850; 86900; 86901; 88305; 88331; 94150; 99152; 99153; 99222; C1788; J0131; J1100; J1626; J1642; J1756; J2060; J2150; J2250; J2405; J3010; J3475; J3480; J7040; J7050; J7120; J9060

== ENCOUNTER → 2016-10-03 | Day surgery (SDC) | payer MEDICAID ==
[~2016-10-03] VITALS: Ht 160 cm; Wt 47.4 kg
[~2016-10-03] MED LIST changes: +*ONDANSETRON 4 MG VIAL PERIprocedural Use ONLY ONE; +*morphine SULFATE 8 MG/ML PERIprocedure ONLY ONE; +ACETAMINOPHEN 1000 MG/100 ML VIAL IV ONE; +APREPITANT 40 MG CAP ONE; +CHLORHEXIDINE GLUCONATE 2 % 1 PACK (2 CLOTHS) TOPICAL PRN; +DEXAMETHASONE SOD PHOS 4 MG/ML VIAL ONE; +DICLOFENAC SODIUM 37.5 MG/ML VIAL IV PUSH ONE; +DO NOT ADM ANY ANTICOAGULANT DRUGS PRN; +ESTROGENS CONJUGATED VAG CREA 15 APPL/30 GM TUBE VAGINAL ONE; +FAMOTIDINE 20 MG/2 ML VIAL ONE; +FERRIC SUBSULFATE 8 ML TOP SOLN TOPICAL ONE; +INSULIN HUMAN REGULAR 1,000 UNITS/10 ML VIAL SQ PRN; +IOHEXOL 350 MG/ML 50 ML BTL (for RAD DIAG) IV ONE; +IOHEXOL 350 MG/ML 50 ML BTL (for RAD DIAG) ONE; +LACTATED RINGER'S 1000 ML INJ 1,000 ML IV ONE; +LACTATED RINGER'S 1000 ML IV PRN; +LORazepam 2 MG/ML VIAL IV ONE; +LORazepam 2 MG/ML VIAL ONE; +METOPROLOL TARTRATE 25 MG TAB PO PRN; +MIDAZOLAM HCL 2 MG/2 ML VIAL ONE; +MORPHINE SULFATE 8 MG/ML INJ IV PUSH ONE; +ONDANSETRON HCL 4 MG/2 ML VIAL IV PUSH ONE; +PHENYLEPH/NS 1000 MCG/10 ML SYR IV ONE; +POVIDONE IODINE 5% (ANTISEPSIS KIT) 4 APPLICATIONS EACH NARE PRN; +PROPOFOL 200 MG/20 ML AMP IV ONE; +SODIUM CHLORID 0.9% 500 ML IV PRN; +SODIUM CHLORIDE 0.9% FLUSH 10 ML FLUSH IV FLUSH PRN; +ceFAZolin 1,000 MG/NS 100 ML IV SCH; +ePHEDrine/NS 25 MG/5 ML SYR IV ONE
[2016-10-03 06:27] VITALS: BP 102/63; PULSE 76; RESP 18; TEMP 98; O2SAT 100
--- NOTE | 2016-10-03 09:58 | RADRPT ---
EXAM DATE/TIME: 10/03/2016 07:09 [place] COMPARISON: No previous studies available for comparison. EXTERNAL COMPARISON : [facility], PET/CT - TUMOR METABOLISM, August 13, 2016 INDICATIONS : Cervical cancer. MEDICAL HISTORY : Arthritis. Cervical cancer. Clotting problems. Syncope. Migraines. COPD. UT I. Depression. Anxiety. SURGICAL HISTORY : Appendectomy. Cholecystectomy. Tubal ligation. Bilateral toes amputated. Blood transfusions. ENCOUNTER: Initial ACUITY: 2 months PAIN SCORE: Nonresponsive. LOCATION: Bilateral pelvis AREA EVALUATED: Uterus . CONCLUSION: Ultrasound was used for intraoperative tandem and ovoid placement. Dc Wallace MD FACR on October 03, 2016 at 9:55 Board Certified Radiologist. This report was verified electronically.
--- NOTE | 2016-10-03 10:13 | MP ---
cc: ARIANNE STORY M.D. Corrected: 10/12/2016 DATE OF SURGERY: 10/03/2016 DATE OF : 1975 [facility]-[id number] PREOPERATIVE DIAGNOSIS Stage IIB squamous cell carcinoma of the cervix. POSTOPERATIVE DIAGNOSIS Stage IIB squamous cell carcinoma of the cervix. SURGEON Dr. Esther Davis ENGINE DISPATCHER Dr. Arianne Story PROCEDURE EUA, cervical dilatation with placement of a Gregorio sleeve into the cervical os followed by insertion of tandem and ovoids for radiation treatment delivery. ANESTHESIA General. DETAILS OF PROCEDURE This patient was prepped and draped in the routine fashion. Dr. Esther Davis then performed the initial part of the procedure. Under ultrasound control the patient's cervix was dilated with the Gregorio sleeve inserted. Dr. Davis will have dictated a note regarding this. It was noted, however, that she had what appeared to be an excellent response. There was significant reduction in tumor volume. The cervical os and particularly the posterior lip of the cervix still had some evidence of irregularity interpreted to be tumor. After Dr. Davis completed his procedure, a tandem with a stop at 5 cm was then placed into the Gregorio sleeve and cervical os. Two small capped ovoids were placed in the vaginal fornices and a rectal shield was placed. All of this was locked in place with a locking device as provided with the tandem and ovoid system. One inch saline-soaked vaginal packing was then inserted to stabilize the system and the procedure was then completed. She will be transferred from the recovery room to radiation treatment where she will undergo simulation treatment and removal of the devices. This is the first of five planned treatments. MD KADEN Winn/ZULY /9:57 AM /10:04 AM JAN
[2016-10-17 06:51] VITALS: BP 129/71; PULSE 67; RESP 16; TEMP 98.6; O2SAT 100
[2016-10-22 06:26] VITALS: BP 102/69; PULSE 94; RESP 16; TEMP 98.6; O2SAT 99
== END | disposition home or self-care (01) ==
LOC: HSDC 05:55
PROVIDERS: ATTEND Radiology Radiation Oncology
DX: C53.9 Malignant neoplasm of cervix uteri, unspecified (principal); E78.5 Hyperlipidemia, unspecified; J44.9 Chronic obstructive pulmonary disease, unspecified; K21.9 Gastro-esophageal reflux disease without esophagitis; F32.9 Major depressive disorder, single episode, unspecified; F41.9 Anxiety disorder, unspecified; M19.90 Unspecified osteoarthritis, unspecified site
CPT/HCPCS: 76998; J0131; J0690; J1100; J1130; J2060; J2250; J2270; J2370; J2405; J3010; J7120; J8501; Q9967

== ENCOUNTER → 2016-10-31 | Day surgery (SDC) | payer MEDICAID ==
[~2016-10-31] VITALS: Ht 157.5 cm; Wt 46.3 kg
[~2016-10-31] MED LIST changes: +*HYDROmorphone PF 1 MG VIAL PERIprocedural Use ONLY ONE; -*ONDANSETRON 4 MG VIAL PERIprocedural Use ONLY ONE; -*morphine SULFATE 8 MG/ML PERIprocedure ONLY ONE; -ACETAMINOPHEN 1000 MG/100 ML VIAL IV ONE; -APREPITANT 40 MG CAP ONE; -DEXAMETHASONE SOD PHOS 4 MG/ML VIAL ONE; -DICLOFENAC SODIUM 37.5 MG/ML VIAL IV PUSH ONE; +ESTROGENS CONJUGATED VAG CREA 15 APPL/30 GM TUBE ONE; -ESTROGENS CONJUGATED VAG CREA 15 APPL/30 GM TUBE VAGINAL ONE; -FAMOTIDINE 20 MG/2 ML VIAL ONE; -FERR325T PO; -FERRIC SUBSULFATE 8 ML TOP SOLN TOPICAL ONE; -IOHEXOL 350 MG/ML 50 ML BTL (for RAD DIAG) IV ONE; -IOHEXOL 350 MG/ML 50 ML BTL (for RAD DIAG) ONE; -LACTATED RINGER'S 1000 ML INJ 1,000 ML IV ONE; -LORazepam 2 MG/ML VIAL IV ONE; -LORazepam 2 MG/ML VIAL ONE; +MORPHINE SULFATE 4 MG/ML INJ ONE; -MORPHINE SULFATE 8 MG/ML INJ IV PUSH ONE; -NICO21DI2 T-DERMAL; -SODIUM CHLORIDE 0.9% FLUSH 10 ML FLUSH IV FLUSH PRN; -XANA1TAB2 PO; -ePHEDrine/NS 25 MG/5 ML SYR IV ONE; +fentaNYL CITRATE 250 MCG/5 ML AMP ONE
[2016-10-31 06:30] VITALS: BP 93/57; PULSE 78; RESP 16; TEMP 98.1; O2SAT 100
[2016-10-31 08:40] VITALS: BP 109/63; PULSE 60; RESP 16; TEMP 97.3; O2SAT 97
--- NOTE | 2016-10-31 09:59 | RADONCOP ---
OPERATIVE REPORT DATE OF SURGERY: 10/31/2016 REFERRING PHYSICIAN: Esther Davis PREOPERATIVE DIAGNOSIS: Primary C53.0 - Malignant neoplasm of endocervix, Diagnosed 08/21/2016 (Active) Primary R87.614 - Cytologic evidence of malignancy on smear of cervix, Diagnosed 07/2016 (Active) POSTOPERATIVE DIAGNOSIS: Primary C53.0 - Malignant neoplasm of endocervix, Diagnosed 08/21/2016 (Active) Primary R87.614 - Cytologic evidence of malignancy on smear of cervix, Diagnosed 07/2016 (Active) PROCEDURE: Tandem and ovoid insertion for delivery of radiation therapy treatment with removal of clint sleeve. SURGEON: Jack Story ANESTHESIA: General PROCEDURE: Patient was anesthetized, placed in position, prepped and draped in routine fashion. After appropriate time out, a Clint sleeve had been previously placed and remains in place was removed. There were no visible changes or findings. Tandem and ovoids were then placed and vaginal packing was placed in the vagina to stabilize the device for treatment. An estrogen cream was used with the packing. The cervix was dilated today to allow for placement of the tandem. A rectal shield was also utilized today. There was 1-2 cc of blood loss and no complications and patient was taken to recovery room. Patient came from recovery to the Radiation Oncology department where she underwent CT Simulation with planning followed by delivery of her radiation treatment. This is the 5 of 5 planned treatments. All of the devices will be removed and the patient is expected to be discharged discharged home in good condition. Jack Story MD 10/31/2016 9:59:05 AM This report was verified and signed electronically [facility] [address] [place] [address] RADIATION ONCOLOGY OPERATIVE REPORT Date: 10/31/2016 Patient Name: Evie Whitmore
== END | disposition home or self-care (01) ==
LOC: HSDC 05:43
PROVIDERS: ATTEND Radiology Radiation Oncology
DX: C53.0 Malignant neoplasm of endocervix (principal)
CPT/HCPCS: 00940; 57155; J0690; J1170; J2250; J2270; J2370; J2405; J3010; J7120